=== PATIENT | male | born 1965 | race American Indian/Alaskan Native ===

== ENCOUNTER 2017-03-22 11:39 | Emergency (ER) | payer OTHER ==
[2017-03-22 12:18] VITALS: BP 162/96
[2017-03-22] MEDS ORDERED: MOTRIN PO ONE (14:49)
--- NOTE | 2017-03-22 14:57 | Emergency Department Report ---
ED Lower Extremity HPI - General Chief Complaint: Extremity Injury, Lower Stated Complaint: LOWER LEG INJURY AFTER STEPPED IN HOLE AT WORK Time Seen by Provider: 03/22/17 14:48 Source: patient Mode of arrival: Ambulatory Limitations: No Limitations - History of Present Illness Initial Comments: Pt stepped down in three foot hole at work and presents with L foot/heel pain. States he cannot bear weight. No numbness. MD Complaint: foot injury -: hour(s) (4) Injury: Foot: Left Type of Injury: blunt Place: work Severity: moderate Severity scale (0 -10): 6 Improves With: rest Worsens With: weight bearing, movement, palpation Context: fall Associated Symptoms: unable to bear weight. denies: swelling, numbness, tingling - Related Data Home Medications Medication Instructions Recorded Confirmed Last Taken Lisinopril/Hydrochlorothiazide 1 tab PO QDAY 03/07/13 12/25/15 Unknown [Zestoretic 20-25 mg] Previous Rx's Medication Instructions Recorded Last Taken Type Lisinopril [Zestril TAB] 20 mg PO QDAY #30 tablet 03/07/13 Unknown Rx Lisinopril/Hydrochlorothiazide 1 tab PO QDAY #30 tablet 03/07/13 Unknown Rx [Zestoretic 20-25 mg] Terazosin(Nf) [Hytrin (Nf)] 2 mg PO QHS #30 capsule 03/07/13 12/24/15 Rx Hydrochlorothiazide 25 mg PO QDAY #90 tablet 11/12/13 Unknown Rx amLODIPine [Norvasc] 5 mg PO DAILY #90 tab 11/12/13 12/24/15 Rx glyBURIDE [Diabeta] 2.5 mg PO DAILY #30 tablet 11/12/13 12/24/15 Rx Naproxen [Naprosyn] 500 mg PO BID #20 tablet 03/22/17 Unknown Rx Allergies Allergy/AdvReac Type Severity Reaction Status Date / Time No Known Allergies Allergy Verified 11/12/13 08:24 ED Review of Systems ROS: Stated complaint: LOWER LEG INJURY AFTER STEPPED IN HOLE AT WORK Other details as noted in HPI Comment: All other systems reviewed and negative Constitutional: denies: chills, fever Eyes: denies: eye pain, eye discharge, vision change ENT: denies: ear pain, throat pain Respiratory: denies: cough, shortness of breath, wheezing Cardiovascular: denies: chest pain, palpitations Endocrine: no symptoms reported Gastrointestinal: denies: abdominal pain, nausea, diarrhea Genitourinary: denies: urgency, dysuria Musculoskeletal: as per HPI, arthralgia. denies: back pain, joint swelling Skin: denies: rash, lesions Neurological: denies: headache, weakness, paresthesias Psychiatric: denies: anxiety, depression Hematological/Lymphatic: denies: easy bleeding, easy bruising ED Past Medical Hx - Past Medical History Previous Medical History?: Yes Hx Hypertension: Yes Hx Heart Attack/AMI: No Hx Congestive Heart Failure: No Hx Diabetes: Yes Additional medical history: high cholesterol. diverticulosis - Surgical History Past Surgical History?: Yes Additional Surgical History: eye surgery - Social History Smoking Status: Never Smoker Substance Use Type: Alcohol - Medications Home Medications: Home Medications Medication Instructions Recorded Confirmed Last Taken Type Lisinopril [Zestril TAB] 20 mg PO QDAY #30 tablet 03/07/13 12/25/15 Unknown Rx Lisinopril/Hydrochlorothiazide 1 tab PO QDAY 03/07/13 12/25/15 Unknown History [Zestoretic 20-25 mg] Lisinopril/Hydrochlorothiazide 1 tab PO QDAY #30 tablet 03/07/13 12/25/15 Unknown Rx [Zestoretic 20-25 mg] Terazosin(Nf) [Hytrin (Nf)] 2 mg PO QHS #30 capsule 03/07/13 12/25/15 12/24/15 Rx Hydrochlorothiazide 25 mg PO QDAY #90 tablet 11/12/13 12/25/15 Unknown Rx amLODIPine [Norvasc] 5 mg PO DAILY #90 tab 11/12/13 12/25/15 12/24/15 Rx glyBURIDE [Diabeta] 2.5 mg PO DAILY #30 tablet 11/12/13 12/25/15 12/24/15 Rx Naproxen [Naprosyn] 500 mg PO BID #20 tablet 03/22/17 Unknown Rx ED Physical Exam - General Limitations: No Limitations General appearance: alert, in no apparent distress - Head Head exam: Present: atraumatic, normocephalic - Eye Eye exam: Present: normal appearance - ENT ENT exam: Present: mucous membranes moist - Neck Neck exam: Present: normal inspection - Respiratory Respiratory exam: Present: normal lung sounds bilaterally. Absent: respiratory distress - Cardiovascular Cardiovascular Exam: Present: regular rate, normal rhythm. Absent: systolic murmur, diastolic murmur, rubs, gallop - GI/Abdominal GI/Abdominal exam: Present: soft, normal bowel sounds - Rectal Rectal exam: Present: deferred - Extremities Exam Extremities exam: Present: normal inspection - Expanded Lower Extremity Exam Left Knee exam: Present: normal inspection, full ROM. Absent: tenderness Lower Leg exam: Present: normal inspection, full ROM. Absent: tenderness Ankle exam: Present: normal inspection, full ROM. Absent: tenderness Foot/Toe exam: Present: normal inspection, tenderness (heel), calcaneal tenderness. Absent: swelling, deformity, dislocation Neuro vascular tendon exam: Present: no vascular compromise. Absent: motor deficit, sensory deficit, tendon deficit - Back Exam Back exam: Present: normal inspection - Neurological Exam Neurological exam: Present: alert, oriented X3 - Psychiatric Psychiatric exam: Present: normal affect, normal mood - Skin Skin exam: Present: warm, dry, intact, normal color. Absent: rash ED Course Vital Signs 03/22/17 03/22/17 12:16 15:00 Temperature 98.7 F Pulse Rate 87 Respiratory 16 14 Rate Blood Pressure 162/96 O2 Sat by Pulse 97 Oximetry - Reevaluation(s) Reevaluation #1: 03/22/17 17:07 Pt is in NAD and stable for d/c. ED Lower Extremity MDM - Radiology Data Radiology results: report reviewed, image reviewed interpreted by me: saloni naf - Medical Decision Making Imaging negative. Will give crutches to aid in ambulation. Follow up with ortho. - Differential Diagnosis contusion, fracture Critical care attestation.: If time is entered above; I have spent that time in minutes in the direct care of this critically ill patient, excluding procedure time. ED Disposition Clinical Impression: Contusion of heel Qualifiers: Encounter type: initial encounter Laterality: left Qualified Code(s): S90.32XA - Contusion of left foot, initial encounter Disposition: TO HOME OR SELFCARE Is pt being admited?: No Condition: Good Instructions: Foot Contusion (ED) Prescriptions: Naproxen [Naprosyn] 500 mg PO BID #20 tablet Referrals: SAMMY PANG MD [Primary Care Provider] - 3-5 Days EDILSON HOLLEY MD [Staff Physician] - 3-5 Days Time of Disposition: 17:10
--- NOTE | 2017-03-22 16:16 | XRay Report ---
FINAL REPORT PROCEDURE: XR CALCANEOUS 2+V LT TECHNIQUE: LEFT calcaneus radiographs, 2 views. HISTORY: heel pain, injury COMPARISON: No prior studies are available for comparison. FINDINGS: Fracture (s) and/or Dislocation(s): None. Joint space(s): Normal. Soft tissues: Normal. Bone mineralization: Normal. Spurring: Mild degree superior and inferior calcaneal spurs are identified. Foreign bodies: None. IMPRESSION: No acute abnormality
--- NOTE | 2017-03-22 16:18 | XRay Report ---
FINAL REPORT PROCEDURE: XR FOOT 3+V LT TECHNIQUE: LEFT foot radiographs, AP, lateral, and oblique views. CPT 02889 HISTORY: foot pain, injury COMPARISON: No prior studies are available for comparison. FINDINGS: Fracture (s) and/or Dislocation(s): None . Alignment: Normal . Joint space(s): Normal . Soft tissues: Normal . Bone mineralization: Mild degree osteophyte formation is noted involving tibiotalar joint. Foreign bodies: None . Calcaneal spurring: Mild degree superior and inferior calcaneal spur formation is noted.. IMPRESSION: No acute fracture. Mild degree osteoarthritis tibiotalar joint.
== END 2017-03-22 17:29 | disposition home or self-care (01) ==
LOC: ED 11:39
DX: S90.32XA Contusion of left foot, initial encounter (principal); X50.9XXA Other and unspecified overexertion or strenuous movements or postures, initial encounter; Y93.9 Activity, unspecified; Y92.9 Unspecified place or not applicable; Y99.9 Unspecified external cause status

== ENCOUNTER 2018-12-18 07:15 | Emergency (ER) | payer OTHER ==
[2018-12-18 07:22] VITALS: BP 155/90
--- NOTE | 2018-12-18 07:55 | Emergency Department Report ---
ED General Adult HPI - General Chief complaint: High BP Stated complaint: PRESSURE AND SUGAR UP Time Seen by Provider: 12/18/18 07:53 Source: patient Mode of arrival: Ambulatory Limitations: No Limitations - History of Present Illness Initial comments: 53-year-old -[place] male with a one-day history of elevated blood sugar and elevated blood pressure patient reports his blood sugar was 187 this morning report is temperature is 101 this a.m. Patient reports he took Tylenol. He complains of pain and swelling to the right leg. Patient does admit that he was in the sun all day yesterday and states that his lightheadedness. Patient denies any chest pain or shortness of breathing blood sugar in triage is 129 blood pressure in triage is 155/90 heart rate 100 temp 98.9. Patient has a past medical history of hypertension diabetes has no known drug allergies and he currently takes metformin 500 mg twice a day and amlodipine 10 mg and lis inopril/HCTZ at 2025 mg. As well as an aspirin 81 mg daily. Onset/Timin -: days(s) Location: right, lower extremity Radiation: non-radiation Quality: aching Consistency: intermittent Improves with: none Worsens with: movement Associated Symptoms: fever/chills. denies: cough, diaphoresis, headaches, shortness of breath Treatments Prior to Arrival: other (acetaminophen) - Related Data Home Medications Medication Instructions Recorded Confirmed Last Taken Lisinopril/Hydrochlorothiazide 1 tab PO QDAY 03/07/13 12/25/15 Unknown [Zestoretic 20-25 mg] Previous Rx's Medication Instructions Recorded Last Taken Type Lisinopril [Zestril TAB] 20 mg PO QDAY #30 tablet 03/07/13 Unknown Rx Lisinopril/Hydrochlorothiazide 1 tab PO QDAY #30 tablet 03/07/13 Unknown Rx [Zestoretic 20-25 mg] Terazosin(Nf) [Hytrin (Nf)] 2 mg PO QHS #30 capsule 03/07/13 12/24/15 Rx amLODIPine [Norvasc] 5 mg PO DAILY #90 tab 11/12/13 12/24/15 Rx glyBURIDE [Diabeta] 2.5 mg PO DAILY #30 tablet 11/12/13 12/24/15 Rx hydroCHLOROthiazide 25 mg PO QDAY #90 tablet 11/12/13 Unknown Rx [Hydrochlorothiazide] Naproxen [Naprosyn] 500 mg PO BID #20 tablet 03/22/17 Unknown Rx Allergies Allergy/AdvReac Type Severity Reaction Status Date / Time No Known Allergies Allergy Verified 12/18/18 07:16 ED Review of Systems ROS: Stated complaint: PRESSURE AND SUGAR UP Other details as noted in HPI Constitutional: fever Respiratory: denies: cough, shortness of breath, SOB with exertion, SOB at rest Musculoskeletal: other (Right calf swelling) ED Past Medical Hx - Past Medical History Hx Hypertension: Yes Hx Heart Attack/AMI: No Hx Congestive Heart Failure: No Hx Diabetes: Yes Additional medical history: high cholesterol. diverticulosis - Surgical History Additional Surgical History: eye surgery - Social History Smoking Status: Never Smoker - Medications Home Medications: Home Medications Medication Instructions Recorded Confirmed Last Taken Type Lisinopril [Zestril TAB] 20 mg PO QDAY #30 tablet 03/07/13 12/25/15 Unknown Rx Lisinopril/Hydrochlorothiazide 1 tab PO QDAY 03/07/13 12/25/15 Unknown History [Zestoretic 20-25 mg] Lisinopril/Hydrochlorothiazide 1 tab PO QDAY #30 tablet 03/07/13 12/25/15 Unknown Rx [Zestoretic 20-25 mg] Terazosin(Nf) [Hytrin (Nf)] 2 mg PO QHS #30 capsule 03/07/13 12/25/15 12/24/15 Rx amLODIPine [Norvasc] 5 mg PO DAILY #90 tab 11/12/13 12/25/15 12/24/15 Rx glyBURIDE [Diabeta] 2.5 mg PO DAILY #30 tablet 11/12/13 12/25/15 12/24/15 Rx hydroCHLOROthiazide 25 mg PO QDAY #90 tablet 11/12/13 12/25/15 Unknown Rx [Hydrochlorothiazide] Naproxen [Naprosyn] 500 mg PO BID #20 tablet 03/22/17 Unknown Rx ED Physical Exam - General Limitations: No Limitations General appearance: alert, in no apparent distress - Head Head exam: Present: atraumatic, normocephalic - Eye Eye exam: Present: normal appearance - ENT ENT exam: Present: mucous membranes moist - Neck Neck exam: Present: normal inspection - Respiratory Respiratory exam: Present: normal lung sounds bilaterally. Absent: respiratory distress - Cardiovascular Cardiovascular Exam: Present: tachycardia - GI/Abdominal GI/Abdominal exam: Present: soft, normal bowel sounds - Expanded Lower Extremity Exam Right Hip exam: Present: normal inspection Upper Leg exam: Present: normal inspection, full ROM. Absent: tenderness Knee exam: Present: normal inspection, full ROM Lower Leg exam: Present: full ROM, tenderness, swelling, Lionel's sign Ankle exam: Present: normal inspection, full ROM Foot/Toe exam: Present: normal inspection, full ROM ED Course Vital Signs 12/18/18 07:16 Temperature 98.9 F Pulse Rate 100 H Respiratory 18 Rate Blood Pressure 155/90 O2 Sat by Pulse 98 Oximetry ED Medical Decision Making - Lab Data Result diagrams: 12/18/18 08:07 Laboratory Tests 12/18/18 12/18/18 12/18/18 07:28 08:07 08:07 WBC 9.4 RBC 4.79 Hgb 13.6 Hct 40.9 MCV 85 MCH 28 MCHC 33 RDW 13.3 Plt Count 228 Lymph % (Auto) 20.0 [place] % (Auto) 12.4 H Eos % (Auto) 0.2 Baso % (Auto) 0.6 Lymph # 1.9 [place] # 1.2 H Eos # 0.0 Baso # 0.1 Seg Neutrophils % 66.8 Seg Neutrophils # 6.3 D-Dimer 171.42 POC Glucose 129 H - Medical Decision Making 53-year-old male comes in reporting had elevated blood pressure and blood sugar. Reports blood sugar was 187 this morning we checked it was 129. The pressure stable at 155/90. Patient also complained of right calf pain d-dimer is negat tracey. Patient given ibuprofen for pain management continue with all chronic medications as prescribed. Patient instructed to follow up with his primary care provider if symptoms persist or gets worse. Critical care attestation.: If time is entered above; I have spent that time in minutes in the direct care of this critically ill patient, excluding procedure time. ED Disposition Clinical Impression: Essential hypertension, Diabetes 1.5, managed as type 2, Pain of right calf Disposition: DC-01 TO HOME OR SELFCARE Is pt being admited?: No Does the pt Need Aspirin: No Condition: Stable Instructions: Hypertension (ED), Diabetes Mellitus Type 2 in Adults (ED) Additional Instructions: Continue with all chronic pain medications as prescribed. He can take Tylenol and/or ibuprofen for pain management. Please be sure to stretch her calves daily. Follow up with her primary care provider if his symptoms persist or gets worse. Rule out to the emergency room sooner if you start to have chest pain shortness of breathing. Referrals: KOTA MICHEL MD [Other] - 3-5 Days Forms: Work/School Release Form(ED)
[2018-12-18 09:14] LABS: Basophils # (Auto) 0.1 K/mm3 (0.0-0.1); Basophils % (Auto) 0.6 % (0.0-1.8); Eosinophils % (Auto) 0.2 % (0.0-4.3); Hematocrit 40.9 % (35.5-45.6); Hemoglobin 13.6 gm/dl (11.8-15.2); Lymphocytes # (Auto) 1.9 K/mm3 (1.2-5.4); Mean Corpuscular HGB Conc 33 % (32-34); Mean Corpuscular Volume 85 fl (84-94); Monocytes # (Auto) 1.2 K/mm3 (0.0-0.8); Monocytes % (Auto) 12.4 % (0.0-7.3); Platelet Count 228 K/mm3 (140-440); Red Blood Count 4.79 M/mm3 (3.65-5.03); Red Cell Distribution Width 13.3 % (13.2-15.2)
[2018-12-18] MEDS ORDERED: IBUPROFEN PO ONE (09:36)
[2018-12-18 09:37] LABS: Alanine Aminotransferase 28 units/L (7-56); Albumin 3.9 g/dL (3.9-5); BUN/Creatinine Ratio 12; Blood Urea Nitrogen 12 mg/dL (9-20); Calcium 9.3 mg/dL (8.4-10.2); Hemolysis Index 50
== END 2018-12-18 10:26 | disposition home or self-care (01) ==
LOC: ED 07:15
DX: E11.65 Type 2 diabetes mellitus with hyperglycemia (principal); I10 Essential (primary) hypertension; M79.604 Pain in right leg; M79.89 Other specified soft tissue disorders; E78.00 Pure hypercholesterolemia, unspecified; Z98.890 Other specified postprocedural states
CPT/HCPCS: 36415; 80053; 82962; 85025; 85379; 99283

== ENCOUNTER 2018-12-26 16:26 | Emergency (ER) | payer OTHER ==
--- NOTE | 2018-12-26 16:33 | Event Note ---
ED Screening Note Date of service: 12/26/18 Time: 16:32 ED Screening Note: 53 y/o male comes in for flank pain that radiates to the front with urinary frequency This initial assessment/diagnostic orders/clinical plan/treatment(s) is/are subject to change based on patients health status, clinical progression and re- assessment by fellow clinical providers in the ED. Further treatment and workup at subsequent clinical providers discretion. Patient/guardian urged not to elope from the ED as their condition may be serious if not clinically assessed and managed. Initial orders include:
[2018-12-26] MEDS ORDERED: ZOFRAN IV ONE (17:36)
[2018-12-26] MEDS ORDERED: NACL 0.9% 1000 ML 1,000 ML IV ONE (17:36)
[2018-12-26] MEDS ORDERED: TORADOL IV ONE (17:36)
[2018-12-26 17:52] LABS: Bacteria,Urine 1+ /HPF (Negative); Bilirubin,Urine NEG (Negative); Blood,Urine LG (Negative); Color,Urine Straw (Yellow); Mucus,Urine FEW /HPF; Protein,Urine <15 mg/dL mg/dL (Negative); Urobilinogen,Urine < 2.0 mg/dL (<2.0)
--- NOTE | 2018-12-26 18:10 | Emergency Department Report ---
ED Abdominal Pain HPI - General Chief Complaint: Abdominal Pain Stated Complaint: FLANK PAIN Time Seen by Provider: 12/26/18 17:11 Source: patient Mode of arrival: Ambulatory Limitations: No Limitations - History of Present Illness Initial Comments: 53 y/o male comes in for flank pain that radiates to the front with urinary frequency patient states dysuria and urgency no hematuria no fever no chills there is nausea no vomiting . pos suprapubic pain Onset/Timin -: week(s) Location: L flank Radiation: suprapubic Migration to: suprapubic Severity: moderate Severity scale (0 -10): 5 Quality: sharp Consistency: constant Improves With: nothing Worsens With: other (voiding ) Associated Symptoms: dysuria - Related Data Home Medications Medication Instructions Recorded Confirmed Last Taken Lisinopril/Hydrochlorothiazide 1 tab PO QDAY 03/07/13 12/25/15 Unknown [Zestoretic 20-25 mg] Previous Rx's Medication Instructions Recorded Last Taken Type Lisinopril [Zestril TAB] 20 mg PO QDAY #30 tablet 03/07/13 Unknown Rx Lisinopril/Hydrochlorothiazide 1 tab PO QDAY #30 tablet 03/07/13 Unknown Rx [Zestoretic 20-25 mg] Terazosin(Nf) [Hytrin (Nf)] 2 mg PO QHS #30 capsule 03/07/13 12/24/15 Rx amLODIPine [Norvasc] 5 mg PO DAILY #90 tab 11/12/13 12/24/15 Rx glyBURIDE [Diabeta] 2.5 mg PO DAILY #30 tablet 11/12/13 12/24/15 Rx hydroCHLOROthiazide 25 mg PO QDAY #90 tablet 11/12/13 Unknown Rx [Hydrochlorothiazide] Naproxen [Naprosyn] 500 mg PO BID #20 tablet 03/22/17 Unknown Rx Allergies Allergy/AdvReac Type Severity Reaction Status Date / Time No Known Allergies Allergy Verified 12/18/18 07:16 ED Review of Systems ROS: Stated complaint: FLANK PAIN Other details as noted in HPI Constitutional: denies: chills, fever Eyes: denies: eye pain, eye discharge, vision change ENT: denies: ear pain, throat pain Respiratory: denies: cough, shortness of breath, wheezing Cardiovascular: denies: chest pain, palpitations Endocrine: no symptoms reported Gastrointestinal: abdominal pain, nausea. denies: vomiting, diarrhea, constipation, hematemesis, melena, hematochezia Genitourinary: urgency, dysuria, frequency. denies: hematuria, discharge, testicular pain, testicular mass Musculoskeletal: back pain Skin: denies: rash, lesions Neurological: denies: headache, weakness, paresthesias Psychiatric: denies: anxiety, depression Hematological/Lymphatic: denies: easy bleeding, easy bruising ED Past Medical Hx - Past Medical History Previous Medical History?: Yes Hx Hypertension: Yes Hx Heart Attack/AMI: No Hx Congestive Heart Failure: No Hx Diabetes: Yes Additional medical history: high cholesterol. diverticulosis - Surgical History Past Surgical History?: Yes Additional Surgical History: eye surgery - Social History Smoking Status: Never Smoker Substance Use Type: Prescribed - Medications Home Medications: Home Medications Medication Instructions Recorded Confirmed Last Taken Type Lisinopril [Zestril TAB] 20 mg PO QDAY #30 tablet 03/07/13 12/25/15 Unknown Rx Lisinopril/Hydrochlorothiazide 1 tab PO QDAY 03/07/13 12/25/15 Unknown History [Zestoretic 20-25 mg] Lisinopril/Hydrochlorothiazide 1 tab PO QDAY #30 tablet 03/07/13 12/25/15 Unknown Rx [Zestoretic 20-25 mg] Terazosin(Nf) [Hytrin (Nf)] 2 mg PO QHS #30 capsule 03/07/13 12/25/15 12/24/15 Rx amLODIPine [Norvasc] 5 mg PO DAILY #90 tab 11/12/13 12/25/15 12/24/15 Rx glyBURIDE [Diabeta] 2.5 mg PO DAILY #30 tablet 11/12/13 12/25/15 12/24/15 Rx hydroCHLOROthiazide 25 mg PO QDAY #90 tablet 11/12/13 12/25/15 Unknown Rx [Hydrochlorothiazide] Naproxen [Naprosyn] 500 mg PO BID #20 tablet 03/22/17 Unknown Rx ED Physical Exam - General Limitations: No Limitations General appearance: alert, in no apparent distress - Head Head exam: Present: atraumatic, normocephalic - Eye Eye exam: Present: normal appearance, PERRL, EOMI Pupils: Present: normal accommodation - ENT ENT exam: Present: mucous membranes moist - Neck Neck exam: Present: normal inspection, full ROM - Respiratory Respiratory exam: Present: normal lung sounds bilaterally. Absent: respiratory distress, wheezes, stridor, chest wall tenderness - Cardiovascular Cardiovascular Exam: Present: regular rate, normal rhythm, normal heart sounds. Absent: systolic murmur, diastolic murmur, rubs, gallop - GI/Abdominal GI/Abdominal exam: Present: soft, normal bowel sounds. Absent: distended, tenderness, guarding, rebound, rigid, bruit, hernia - Expanded GI/Abdominal Exam Expanded GI/Abdominal exam: Present: other (left flank tenderness ). Absent: psoas sign, obturator sign, heel tap sign, Quiñonez's sign, Rovsing's sign, tenderness at [place], ascites - Rectal Rectal exam: Present: deferred - Extremities Exam Extremities exam: Present: normal inspection - Back Exam Back exam: Present: normal inspection - Neurological Exam Neurological exam: Present: alert, oriented X3, CN II-XII intact, normal gait, reflexes normal - Psychiatric Psychiatric exam: Present: normal affect, normal mood - Skin Skin exam: Present: warm, dry, intact, normal color. Absent: rash ED Course Vital Signs 12/26/18 16:28 Temperature 99.2 F Pulse Rate 96 H Respiratory 20 Rate Blood Pressure 156/84 O2 Sat by Pulse 97 Oximetry Critical care attestation.: If time is entered above; I have spent that time in minutes in the direct care of this critically ill patient, excluding procedure time. ED Disposition Condition: Stable Referrals: ROXANNE ARIAS MD [Primary Care Provider] - 3-5 Days
[2018-12-26 18:35] LABS: Basophils % (Auto) 0.3 % (0.0-1.8); Eosinophils # (Auto) 0.1 K/mm3 (0.0-0.4); Eosinophils % (Auto) 1.4 % (0.0-4.3); Hemoglobin 12.1 gm/dl (11.8-15.2); Lymphocytes % (Auto) 32.5 % (13.4-35.0); Mean Corpuscular HGB Conc 33 % (32-34); Mean Corpuscular Volume 86 fl (84-94); Platelet Count 349 K/mm3 (140-440); Red Blood Count 4.31 M/mm3 (3.65-5.03); Red Cell Distribution Width 13.4 % (13.2-15.2)
[2018-12-26 19:14] LABS: Alanine Aminotransferase 19 units/L (7-56); Albumin 3.6 g/dL (3.9-5); BUN/Creatinine Ratio 16; Blood Urea Nitrogen 14 mg/dL (9-20); Calcium 9.4 mg/dL (8.4-10.2); Hemolysis Index 62
[2018-12-26 20:47] VITALS: BP 116/58
--- NOTE | 2018-12-26 21:13 | Cat Scan Report ---
CT ABDOMEN AND PELVIS WITHOUT CONTRAST INDICATION: flank pain that radiates to pelvis CONTRAST: Without IV COMPARISON: None available. All CT scans at this location are performed using CT dose reduction for ALARA by means of automated e xposure control. NOTE: Resolution is decreased and artifact is introduced by the patient's size. FINDINGS: Lung bases are clear of infiltrates. No pneumoperitoneum is seen. Gallbladder appears withi n normal limits. Liver shows scattered small centimeter or less hypodensities, some of which appear t o be cysts and others are technically indeterminate. Mild fatty trace of the liver is seen. Liver is mildly enlarged with a length of 19 cm. Spleen appears within normal limits. No other masses are seen . Colonic diverticulosis is seen without evidence of diverticulitis. No focal inflammatory changes ar e seen. No free fluid is noted. No significant lymphadenopathy is seen. Appendix appears within adriana l limits. No urinary tract calculi or evidence of obstruction are seen. Urinary bladder shows no intrinsic abno rmalities. Prostate is mildly enlarged and impinges on the bladder. IMPRESSION: 1. No acute abnormalities are seen 2. Mildly indeterminate scattered renal lesions, some probably cysts and others of unsure etiology. F ollow-up might be useful. Liver is mildly enlarged and shows fatty infiltration. 3. Mild prostatomegaly IMPRESSION: No acute abnormalities are seen Signer Name: Rikki Fleming MD Signed: 12/26/2018 9:09 PM Workstation Name: [id number]
== END 2018-12-26 21:15 | disposition home or self-care (01) ==
LOC: ED 16:26
DX: R10.32 Left lower quadrant pain (principal); R35.0 Frequency of micturition; R30.0 Dysuria; R11.0 Nausea; I10 Essential (primary) hypertension; E11.9 Type 2 diabetes mellitus without complications; E78.00 Pure hypercholesterolemia, unspecified; Z79.899 Other long term (current) drug therapy
CPT/HCPCS: 36415; 74176; 80053; 81001; 82962; 85025; 96374; 96375; 99284; J1885; J2405; J7030

== ENCOUNTER 2018-12-29 07:14 | Emergency (ER) | payer OTHER ==
[2018-12-29 08:17] VITALS: BP 162/91
[2018-12-29] MEDS ORDERED: TORADOL IM ONE (08:19)
[2018-12-29] MEDS ORDERED: NORCO 10/325 PO ONE (08:19)
[2018-12-29] MEDS ORDERED: TORADOL ONE (08:21)
[2018-12-29] MEDS ORDERED: NORCO 10/325 ONE (08:22)
--- NOTE | 2018-12-29 08:23 | Emergency Department Report ---
ED Back Pain/Injury HPI - General Chief Complaint: Back Pain/Injury Stated Complaint: BACK PAIN Time Seen by Provider: 12/29/18 08:12 Source: patient Limitations: No Limitations - History of Present Illness Initial Comments: This is a 53-year-old male nontoxic, well nourished in appearance, no acute signs of distress presents to the ED with c/o of acute lower back pain. Patient stated has been taking Levo due to UTI diagnosed a few days ago and stated that symptoms has resolved but came back yesterday. Patient stated that pain is worse with movement and resolved with supine and rest. Patient states that pain radiates through to his left lower extremity. Patient denies any trauma. Denies any bladder or bowel instability. Patient denies any urinary symptoms. Denies any fever, chills, nausea, vomiting, headache, stiff neck, chest pain or shortness of breath. Patient denies any numbness or tingling. Denies any allergies. MD Complaint: back pain -: days(s) (1) Similar Symptoms Previously: Yes Place: home Radiation: left leg Severity: mild Severity scale (0 -10): 8 Quality: aching Consistency: intermittent Improves With: immobilization, sitting upright Worsens With: movement, walking Associated Symptoms: denies other symptoms. denies: confusion, weakness, chest pain, numbness, difficulty walking, cough, difficulty urinating, diaphoresis, incontinence, fever/chills, constipation, headaches, abdominal pain, loss of appetite, malaise, nausea/vomiting, rash, seizure, shortness of breath, syncope - Related Data Home Medications Medication Instructions Recorded Confirmed Last Taken Lisinopril/Hydrochlorothiazide 1 tab PO QDAY 03/07/13 12/25/15 Unknown [Zestoretic 20-25 mg] Previous Rx's Medication Instructions Recorded Last Taken Type Lisinopril [Zestril TAB] 20 mg PO QDAY #30 tablet 03/07/13 Unknown Rx Lisinopril/Hydrochlorothiazide 1 tab PO QDAY #30 tablet 03/07/13 Unknown Rx [Zestoretic 20-25 mg] Terazosin(Nf) [Hytrin (Nf)] 2 mg PO QHS #30 capsule 03/07/13 12/24/15 Rx amLODIPine [Norvasc] 5 mg PO DAILY #90 tab 11/12/13 12/24/15 Rx glyBURIDE [Diabeta] 2.5 mg PO DAILY #30 tablet 11/12/13 12/24/15 Rx hydroCHLOROthiazide 25 mg PO QDAY #90 tablet 11/12/13 Unknown Rx [Hydrochlorothiazide] Naproxen [Naprosyn] 500 mg PO BID #20 tablet 03/22/17 Unknown Rx Tamsulosin [Flomax] 0.4 mg PO QDAY #15 cap 12/26/18 Unknown Rx levoFLOXacin [Levaquin TAB] 500 mg PO QDAY 10 Days #10 tablet 12/26/18 Unknown Rx traMADol [Ultram] 50 mg PO Q6HR PRN #12 tablet 12/26/18 Unknown Rx Cyclobenzaprine [Flexeril] 10 mg PO QHS PRN #10 tablet 12/29/18 Unknown Rx Ibuprofen [Motrin] 600 mg PO Q8H PRN #20 tablet 12/29/18 Unknown Rx Allergies Allergy/AdvReac Type Severity Reaction Status Date / Time No Known Allergies Allergy Verified 12/18/18 07:16 ED Review of Systems ROS: Stated complaint: BACK PAIN Other details as noted in HPI Constitutional: denies: chills, fever Eyes: denies: eye pain, eye discharge, vision change ENT: denies: ear pain, throat pain Respiratory: denies: cough, shortness of breath, wheezing Cardiovascular: denies: chest pain, palpitations Endocrine: no symptoms reported Gastrointestinal: denies: abdominal pain, nausea, diarrhea Genitourinary: denies: urgency, dysuria Musculoskeletal: back pain. denies: joint swelling, arthralgia Skin: denies: rash, lesions Neurological: denies: headache, weakness, paresthesias Psychiatric: denies: anxiety, depression Hematological/Lymphatic: denies: easy bleeding, easy bruising ED Past Medical Hx - Past Medical History Previous Medical History?: Yes Hx Hypertension: Yes Hx Heart Attack/AMI: No Hx Congestive Heart Failure: No Hx Diabetes: Yes Additional medical history: high cholesterol. diverticulosis - Surgical History Past Surgical History?: Yes Additional Surgical History: eye surgery - Social History Smoking Status: Never Smoker Substance Use Type: None - Medications Home Medications: Home Medications Medication Instructions Recorded Confirmed Last Taken Type Lisinopril [Zestril TAB] 20 mg PO QDAY #30 tablet 03/07/13 12/25/15 Unknown Rx Lisinopril/Hydrochlorothiazide 1 tab PO QDAY 03/07/13 12/25/15 Unknown History [Zestoretic 20-25 mg] Lisinopril/Hydrochlorothiazide 1 tab PO QDAY #30 tablet 03/07/13 12/25/15 Unknown Rx [Zestoretic 20-25 mg] Terazosin(Nf) [Hytrin (Nf)] 2 mg PO QHS #30 capsule 03/07/13 12/25/15 12/24/15 Rx amLODIPine [Norvasc] 5 mg PO DAILY #90 tab 11/12/13 12/25/15 12/24/15 Rx glyBURIDE [Diabeta] 2.5 mg PO DAILY #30 tablet 11/12/13 12/25/15 12/24/15 Rx hydroCHLOROthiazide 25 mg PO QDAY #90 tablet 11/12/13 12/25/15 Unknown Rx [Hydrochlorothiazide] Naproxen [Naprosyn] 500 mg PO BID #20 tablet 03/22/17 Unknown Rx Tamsulosin [Flomax] 0.4 mg PO QDAY #15 cap 12/26/18 Unknown Rx levoFLOXacin [Levaquin TAB] 500 mg PO QDAY 10 Days #10 tablet 12/26/18 Unknown Rx traMADol [Ultram] 50 mg PO Q6HR PRN #12 tablet 12/26/18 Unknown Rx Cyclobenzaprine [Flexeril] 10 mg PO QHS PRN #10 tablet 12/29/18 Unknown Rx Ibuprofen [Motrin] 600 mg PO Q8H PRN #20 tablet 12/29/18 Unknown Rx ED Physical Exam - General Limitations: No Limitations General appearance: alert, in no apparent distress - Head Head exam: Present: atraumatic, normocephalic - Neck Neck exam: Present: normal inspection, full ROM. Absent: tenderness, meningismus, lymphadenopathy - GI/Abdominal GI/Abdominal exam: Present: soft, normal bowel sounds. Absent: distended, tenderness, guarding, rebound, rigid, diminished bowel sounds - Extremities Exam Extremities exam: Present: normal inspection, full ROM - Back Exam Back exam: Present: normal inspection, full ROM, paraspinal tenderness (left lumbar paraspinal area). Absent: tenderness, CVA tenderness (R), CVA tenderness (L), muscle spasm, vertebral tenderness, rash noted - Expanded Back Exam Expanded Back exam: Absent: saddle anesthesia Back exam: Negative Straight Leg Raising: Left, Right - Neurological Exam Neurological exam: Present: alert, oriented X3, normal gait - Psychiatric Psychiatric exam: Present: normal affect, normal mood - Skin Skin exam: Present: warm, dry, intact, normal color. Absent: rash ED Course Vital Signs 12/29/18 12/29/18 12/29/18 08:09 08:14 08:24 Temperature 98.2 F Pulse Rate 100 H Respiratory 18 Rate Blood Pressure 162/91 O2 Sat by Pulse 98 Oximetry 12/29/18 08:26 Temperature Pulse Rate Respiratory 18 Rate Blood Pressure O2 Sat by Pulse Oximetry - Reevaluation(s) Reevaluation #1: 12/29/18 08:27 Patient is speaking in full sentences with no signs of distress noted. ED Medical Decision Making - Medical Decision Making This is a 53-year-old male that presents with low back strain. Patient is stable was examined by me. There is no spinal tenderness. There is no cauda equina syndrome during examination. No bladder or bowel instability. Patient received Toradol 60 mg IM and [place] in the ED which he stated that his symptoms has resolved and subsided. Patients stated will drive the patient home after discharge due to possible drowiness. UA has been obtained and unremarkable. CT scan has been reviewed from a few days ago as well with no acute abnormalitis. Patient is discharged with muscle relaxant and Motrin. Patient was instructed not to operate any machinery while taking muscle relaxant as they cause her drowsiness. Patient was referred to Follow-up with a primary care doctor in 3-5 days or if symptoms worsen and continue return to emergency room as soon as possible. At time of discharge, the patient does not seem toxic or ill in appearance. No acute signs of distress noted. Patient agrees to discharge treatment plan of care. No further questions noted by the patient. This chart is dictated with using [employer] Critical care attestation.: If time is entered above; I have spent that time in minutes in the direct care of this critically ill patient, excluding procedure time. ED Disposition Clinical Impression: Low back strain Qualifiers: Encounter type: initial encounter Qualified Code(s): S39.012A - Strain of muscle, fascia and tendon of lower back, initial encounter Disposition: - TO HOME OR SELFCARE Is pt being admited?: No Does the pt Need Aspirin: No Condition: Stable Instructions: Low Back Strain (ED), Cyclobenzaprine (By mouth) Additional Instructions: Follow-up with your primary care doctor in 3-5 days or if symptoms worsen such as bladder or bowel stability, chest pain, short of breath, numbness or tingling sensation in extremities, headache, dizziness, visual changes, nausea vomiting, or abdominal pain, return back to emergency room as was possible. Take ibuprofen and Flexeril as prescribed. Do not operate heavy machinery while taking Flexeril due to sedation Prescriptions: Cyclobenzaprine [Flexeril] 10 mg PO QHS PRN #10 tablet PRN Reason: Muscle Spasm Ibuprofen [Motrin] 600 mg PO Q8H PRN #20 tablet PRN Reason: Pain Referrals: PRIMARY CAREMD [Referring] - 3-5 Days ROSIBEL CULVER MD [Staff Physician] - 3-5 Days [facility] [Outside] - 3-5 Days [facility] [Outside] - 3-5 Days Forms: Work/School Release Form(ED)
[2018-12-29 08:59] LABS: Bilirubin,Urine NEG (Negative); Blood,Urine NEG (Negative); Color,Urine Yellow (Yellow); Mucus,Urine 1+ /HPF; Protein,Urine <15 mg/dL mg/dL (Negative); Urobilinogen,Urine < 2.0 mg/dL (<2.0)
== END 2018-12-29 10:30 | disposition home or self-care (01) ==
LOC: ED 07:14
DX: S39.012A Strain of muscle, fascia and tendon of lower back, initial encounter (principal); I10 Essential (primary) hypertension; E11.9 Type 2 diabetes mellitus without complications; E78.00 Pure hypercholesterolemia, unspecified; Z98.890 Other specified postprocedural states; Z79.899 Other long term (current) drug therapy; X58.XXXA Exposure to other specified factors, initial encounter; Y93.89 Activity, other specified; Y92.89 Other specified places as the place of occurrence of the external cause; Y99.8 Other external cause status
CPT/HCPCS: 81001; 87086; 96372; 99283; J1885